=== PATIENT | female | born 1980 | race American Indian/Alaskan Native ===

== ENCOUNTER 2019-06-03 19:52 | Inpatient (IN) | payer OTHER ==
[2019-06-03 21:38] LABS: Basophils % (Auto) 0.6 % (0.0-1.8); Eosinophils # (Auto) 0.1 K/mm3 (0.0-0.4); Eosinophils % (Auto) 0.9 % (0.0-4.3); Hematocrit 40.2 % (30.3-42.9); Hemoglobin 13.6 gm/dl (10.1-14.3); Lymphocytes # (Auto) 1.7 K/mm3 (1.2-5.4); Lymphocytes % (Auto) 23.7 % (13.4-35.0); Mean Corpuscular HGB Conc 34 % (30-34); Mean Corpuscular Volume 105 fl (79-97); Monocytes # (Auto) 0.7 K/mm3 (0.0-0.8); Monocytes % (Auto) 10.3 % (0.0-7.3); Platelet Count 225 K/mm3 (140-440); Red Blood Count 3.82 M/mm3 (3.65-5.03); Red Cell Distribution Width 13.2 % (13.2-15.2)
[2019-06-03] MEDS ORDERED: HALDOL IM PRN (21:45)
[2019-06-03] MEDS ORDERED: ATIVAN IM PRN (21:45)
--- NOTE | 2019-06-03 21:46 | Emergency Department Report ---
<JAMESPAM Dupree - Last Filed: 06/04/19 02:52> ED Psych HPI - General Chief Complaint: Psych Stated Complaint: MH EVAL Time Seen by Provider: 06/03/19 21:16 - Related Data Home Medications Medication Instructions Recorded Confirmed Last Taken No Known Home Medications [No 06/03/19 06/03/19 Unknown Reported Home Medications] Allergies Allergy/AdvReac Type Severity Reaction Status Date / Time Unable to Assess Allergy Verified 06/03/19 23:26 ED Past Medical Hx - Medications Home Medications: Home Medications Medication Instructions Recorded Confirmed Last Taken Type No Known Home Medications [No 06/03/19 06/03/19 Unknown History Reported Home Medications] ED Medical Decision Making - Lab Data Result diagrams: 06/03/19 21:23 06/04/19 00:29 ED Disposition Clinical Impression: Psychosis, Medical clearance for psychiatric admission, Alcohol intoxication, Rhabdomyolysis Disposition: OP ADMIT IP TO THIS HOSP Is pt being admited?: Yes Condition: Stable Time of Disposition: 02:53 (hospitalist paged (Dr. Suzi Waggoner)) <ENRIQUE LOVE - Last Filed: 06/04/19 23:14> ED Psych HPI - General Source: family, police, RN notes reviewed Mode of arrival: Ambulatory Limitations: Other (the patient is actively psychotic) - History of Present Illness Initial Comments: Collateral information was obtained from father Phillip [phone] and josesito Shipley [phone]. They report that patient is a [place] who has no psych hx and that she has been fighting with symptoms of psychosis for the past 4 years on and off. They report that she got upset last night for falling asleep while cooking and that this morning she decided she was going to go to [employer] but never made it and they got a call from the contact and service clerks supervisor at the gas station saying she was intoxicated, was acting out of control, and the police had picked her up. The patient to me is agitated, does not endorse any physical complaint, but is quite disorganized, and erratic. She is also yelling and screaming. The patient did not respond to verbal de-escalation techniques or show of force. She would not respond to questions about possible overdose. Her family has given verbal consent for chemical sedation, if necessary. There is no history of trauma that they are aware of. The patient cannot describe ex acerbating or relieving factors. Complaint: other -: Gradual ED Review of Systems ROS: Stated complaint: CIARA CHUNG Other details as noted in HPI Comment: Unobtainable due to pts medical conditions ED Past Medical Hx - Past Medical History Additional medical history: unable to obtain - Surgical History Additional Surgical History: unable to obtain - Social History Smoking Status: Unknown if ever smoked ED Physical Exam - General Limitations: Other (patient is agitated, psychotic and screaming.) General appearance: alert, anxious, in distress - Head Head exam: Present: atraumatic, normocephalic - Eye Eye exam: Present: normal appearance, EOMI. Absent: nystagmus - ENT ENT exam: Present: normal exam, normal orophraynx, mucous membranes moist, normal external ear exam - Neck Neck exam: Present: normal inspection, full ROM. Absent: tenderness, meningismus - Respiratory Respiratory exam: Present: normal lung sounds bilaterally. Absent: respiratory distress - Cardiovascular Cardiovascular Exam: Present: regular rate, normal rhythm, normal heart sounds. Absent: bradycardia, tachycardia, systolic murmur, diastolic murmur, rubs, gallop - GI/Abdominal GI/Abdominal exam: Present: soft, normal bowel sounds. Absent: distended, tenderness, guarding, rebound, rigid, pulsatile mass - Extremities Exam Extremities exam: Present: normal inspection, full ROM, other (2+ pulses noted in the bilateral upper, lower extremities. There is no long bone tenderness. Musculoskeletal compartments are soft. The pelvis is stable.). Absent: pedal edema, joint swelling, calf tenderness - Back Exam Back exam: Present: normal inspection. Absent: tenderness, CVA tenderness (R), CVA tenderness (L), vertebral tenderness - Neurological Exam Neurological exam: Present: alert, other (is no facial droop. The tongue is midline. The extraocular movements are intact bilaterally. Moving 4 extremities without difficulty. Phonating in full sentences. Detailed n eurologic examination not possible secondary to psychosis) - Psychiatric Psychiatric exam: Present: agitated, anxious - Skin Skin exam: Present: warm, dry, intact, normal color. Absent: rash ED Course Vital Signs 06/03/19 06/03/19 06/03/19 20:23 23:12 23:15 Temperature 98.0 F Pulse Rate 107 H 94 H 94 H Respiratory 18 16 17 Rate Blood Pressure Blood Pressure 90/68 [Left] O2 Sat by Pulse 95 98 98 Oximetry 06/03/19 06/03/19 06/04/19 23:30 23:45 00:01 Temperature Pulse Rate 99 H 90 89 Respiratory 16 16 15 Rate Blood Pressure Blood Pressure [Left] O2 Sat by Pulse 99 98 98 Oximetry 06/04/19 06/04/19 06/04/19 00:15 00:31 00:45 Temperature Pulse Rate 88 105 H 88 Respiratory 16 15 16 Rate Blood Pressure Blood Pressure [Left] O2 Sat by Pulse 99 98 98 Oximetry 06/04/19 06/04/19 06/04/19 01:01 01:15 01:31 Temperature Pulse Rate 88 93 H 91 H Respiratory 18 17 15 Rate Blood Pressure Blood Pressure [Left] O2 Sat by Pulse 97 98 99 Oximetry 06/04/19 06/04/19 06/04/19 01:45 02:01 02:15 Temperature Pulse Rate 90 90 90 Respiratory 14 14 13 Rate Blood Pressure Blood Pressure [Left] O2 Sat by Pulse 99 99 99 Oximetry 06/04/19 06/04/19 06/04/19 02:31 02:45 02:57 Temperature Pulse Rate 89 84 Respiratory 16 14 Rate Blood Pressure Blood Pressure 126/78 [Left] O2 Sat by Pulse 100 99 Oximetry 06/04/19 06/04/19 06/04/19 03:00 03:15 03:30 Temperature Pulse Rate 83 85 87 Respiratory 15 16 14 Rate Blood Pressure 135/72 118/67 119/73 Blood Pressure [Left] O2 Sat by Pulse 99 100 99 Oximetry 06/04/19 06/04/19 06/04/19 03:45 04:00 04:15 Temperature Pulse Rate 85 81 83 Respiratory 15 14 14 Rate Blood Pressure 111/74 108/69 111/74 Blood Pressure [Left] O2 Sat by Pulse 99 98 99 Oximetry 06/04/19 06/04/19 06/04/19 04:30 04:45 05:00 Temperature Pulse Rate 84 85 82 Respiratory 14 13 15 Rate Blood Pressure 111/65 120/76 116/73 Blood Pressure [Left] O2 Sat by Pulse 99 99 98 Oximetry 06/04/19 06/04/19 06/04/19 05:15 05:30 05:41 Temperature Pulse Rate 84 88 84 Respiratory 15 16 15 Rate Blood Pressure 112/80 115/76 115/76 Blood Pressure [Left] O2 Sat by Pulse 99 99 100 Oximetry - Reevaluation(s) Reevaluation #1: 06/03/19 22:50 Differential diagnosis, including the psychosis, intoxication, medical clearance for psychiatric placement, intracranial injury, urinary tract infection Assessment and plan: 38-year-old female who is agitated, combative, belligerent, has endorsed desire for self-harm, who does not have decision-making capacity, who is clinically psychotic. She is placed on a 1013. Discussed need for chemical sedation with family, who has given verbal consent. The patient did not respond to verbal techniques, or show of force. Screening laboratory studies reviewed and appreciated. CK likely secondary to psychomotor agitation. It is not consistent with rhabdomyolysis and it will decrease on its own with rest and oral hydration. Vital signs, urinalysis, EKG, noncontrast CT scan of the brain pending. 1013 is filled out, psychiatric consultation is requested. 06/03/19 22:52 Reevaluation #2: 06/03/19 23:28 Anion gap likely multifactorial, possibly secondary to hyperventilation, deh ydration, alcohol intoxication. Urinalysis suggestive of possible urinary tract infection. Noncontrast CT scan of the brain ordered, IV fluids ordered, Macrobid ordered, repeat laboratory studies ordered. Reevaluation #3: 06/03/19 23:45 care will be transferred to DR Carey Coronado to follow up on head ct and repeat labs patient calmer now ED Medical Decision Making - Lab Data Result diagrams: 06/03/19 21:23 06/04/19 00:29 Vital Signs 06/03/19 20:23 Temperature 98.0 F Pulse Rate 107 H Respiratory 18 Rate Blood Pressure 90/68 [Left] O2 Sat by Pulse 95 Oximetry Lab Results 06/03/19 06/03/19 06/03/19 Range/Units 21:23 21:23 21:23 WBC (4.5-11.0) K/mm3 RBC (3.65-5.03) M/mm3 Hgb (10.1-14.3) gm/dl Hct (30.3-42.9) % MCV (79-97) fl MCH (28-32) pg MCHC (30-34) % RDW (13.2-15.2) % Plt Count (140-440) K/mm3 Lymph % (Auto) (13.4-35.0) % [place] % (Auto) (0.0-7.3) % Eos % (Auto) (0.0-4.3) % Baso % (Auto) (0.0-1.8) % Lymph # (1.2-5.4) K/mm3 [place] # (0.0-0.8) K/mm3 Eos # (0.0-0.4) K/mm3 Baso # (0.0-0.1) K/mm3 Seg Neutrophils % (40.0-70.0) % Seg Neutrophils # (1.8-7.7) K/mm3 Sodium 143 (137-145) mmol/L Potassium 4.0 (3.6-5.0) mmol/L Chloride 104.8 (98-107) mmol/L Carbon Dioxide 15 L (22-30) mmol/L Anion Gap 27 mmol/L BUN 13 (7-17) mg/dL Creatinine 0.9 (0.7-1.2) mg/dL Estimated GFR > 60 ml/min BUN/Creatinine Ratio 14 % Glucose 81 (65-100) mg/dL Calcium 8.7 (8.4-10.2) mg/dL Total Creatine Kinase (30-135) units/L HCG, Quant (0-4) mIU/mL Urine Color (Yellow) Urine Turbidity (Clear) Urine pH (5.0-7.0) Ur Specific [place] (1.003-1.030) Urine Protein (Negative) mg/dL Urine Glucose (UA) (Negative) mg/dL Urine Ketones (Negative) mg/dL Urine Blood (Negative) Urine Nitrite (Negative) Urine Bilirubin (Negative) Urine Urobilinogen (<2.0) mg/dL Ur Leukocyte Esterase (Negative) Urine WBC (Auto) (0.0-6.0) /HPF Urine RBC (Auto) (0.0-6.0) /HPF U Epithel Cells (Auto) (0-13.0) /HPF Urine Bacteria (Auto) (Negative) /HPF Hyaline Casts /LPF Urine Mucus /HPF Urine Yeast (Budding) /HPF Salicylates < 0.3 L (2.8-20.0) mg/dL Urine Opiates Screen Urine Methadone Screen Acetaminophen < 5.0 L (10.0-30.0) ug/mL Ur Barbiturates Screen Ur Phencyclidine Scrn Ur Amphetamines Screen U Benzodiazepines Scrn Urine Cocaine Screen U Marijuana (THC) Screen Drugs of Abuse Note Plasma/Serum Alcohol (0-0.07) % 06/03/19 06/03/19 06/03/19 Range/Units 21:23 21:23 Unknown WBC 7.2 (4.5-11.0) K/mm3 RBC 3.82 (3.65-5.03) M/mm3 Hgb 13.6 (10.1-14.3) gm/dl Hct 40.2 (30.3-42.9) % MCV 105 H (79-97) fl MCH 36 H (28-32) pg MCHC 34 (30-34) % RDW 13.2 (13.2-15.2) % Plt Count 225 (140-440) K/mm3 Lymph % (Auto) 23.7 (13.4-35.0) % [place] % (Auto) 10.3 H (0.0-7.3) % Eos % (Auto) 0.9 (0.0-4.3) % Baso % (Auto) 0.6 (0.0-1.8) % Lymph # 1.7 (1.2-5.4) K/mm3 [place] # 0.7 (0.0-0.8) K/mm3 Eos # 0.1 (0.0-0.4) K/mm3 Baso # 0.0 (0.0-0.1) K/mm3 Seg Neutrophils % 64.5 (40.0-70.0) % Seg Neutrophils # 4.6 (1.8-7.7) K/mm3 Sodium (137-145) mmol/L Potassium (3.6-5.0) mmol/L Chloride (98-107) mmol/L Carbon Dioxide (22-30) mmol/L Anion Gap mmol/L BUN (7-17) mg/dL Creatinine (0.7-1.2) mg/dL Estimated GFR ml/min BUN/Creatinine Ratio % Glucose (65-100) mg/dL Calcium (8.4-10.2) mg/dL Total Creatine Kinase (30-135) units/L HCG, Quant (0-4) mIU/mL Urine Color Yellow (Yellow) Urine Turbidity Slightly-cloudy (Clear) Urine pH 5.0 (5.0-7.0) Ur Specific [place] 1.013 (1.003-1.030) Urine Protein 30 mg/dl (Negative) mg/dL Urine Glucose (UA) Neg (Negative) mg/dL Urine Ketones Neg (Negative) mg/dL Urine Blood Lg (Negative) Urine Nitrite Neg (Negative) Urine Bilirubin Neg (Negative) Urine Urobilinogen < 2.0 (<2.0) mg/dL Ur Leukocyte Esterase Mod (Negative) Urine WBC (Auto) 8.0 H (0.0-6.0) /HPF Urine RBC (Auto) 5.0 (0.0-6.0) /HPF U Epithel Cells (Auto) 7.0 (0-13.0) /HPF Urine Bacteria (Auto) 1+ (Negative) /HPF Hyaline Casts 4 /LPF Urine Mucus Few /HPF Urine Yeast (Budding) Few /HPF Salicylates (2.8-20.0) mg/dL Urine Opiates Screen Urine Methadone Screen Acetaminophen (10.0-30.0) ug/mL Ur Barbiturates Screen Ur Phencyclidine Scrn Ur Amphetamines Screen U Benzodiazepines Scrn Urine Cocaine Screen U Marijuana (THC) Screen Drugs of Abuse Note Plasma/Serum Alcohol 0.21 H (0-0.07) % 06/03/19 06/03/19 06/03/19 Range/Units Unknown Unknown Unknown WBC (4.5-11.0) K/mm3 RBC (3.65-5.03) M/mm3 Hgb (10.1-14.3) gm/dl Hct (30.3-42.9) % MCV (79-97) fl MCH (28-32) pg MCHC (30-34) % RDW (13.2-15.2) % Plt Count (140-440) K/mm3 Lymph % (Auto) (13.4-35.0) % [place] % (Auto) (0.0-7.3) % Eos % (Auto) (0.0-4.3) % Baso % (Auto) (0.0-1.8) % Lymph # (1.2-5.4) K/mm3 [place] # (0.0-0.8) K/mm3 Eos # (0.0-0.4) K/mm3 Baso # (0.0-0.1) K/mm3 Seg Neutrophils % (40.0-70.0) % Seg Neutrophils # (1.8-7.7) K/mm3 Sodium (137-145) mmol/L Potassium (3.6-5.0) mmol/L Chloride (98-107) mmol/L Carbon Dioxide (22-30) mmol/L Anion Gap mmol/L BUN (7-17) mg/dL Creatinine (0.7-1.2) mg/dL Estimated GFR ml/min BUN/Creatinine Ratio % Glucose (65-100) mg/dL Calcium (8.4-10.2) mg/dL Total Creatine Kinase 834 H (30-135) units/L HCG, Quant < 2 (0-4) mIU/mL Urine Color (Yellow) Urine Turbidity (Clear) Urine pH (5.0-7.0) Ur Specific [place] (1.003-1.030) Urine Protein (Negative) mg/dL Urine Glucose (UA) (Negative) mg/dL Urine Ketones (Negative) mg/dL Urine Blood (Negative) Urine Nitrite (Negative) Urine Bilirubin (Negative) Urine Urobilinogen (<2.0) mg/dL Ur Leukocyte Esterase (Negative) Urine WBC (Auto) (0.0-6.0) /HPF Urine RBC (Auto) (0.0-6.0) /HPF U Epithel Cells (Auto) (0-13.0) /HPF Urine Bacteria (Auto) (Negative) /HPF Hyaline Casts /LPF Urine Mucus /HPF Urine Yeast (Budding) /HPF Salicylates (2.8-20.0) mg/dL Urine Opiates Screen Presumptive negative Urine Methadone Screen Presumptive negative Acetaminophen (10.0-30.0) ug/mL Ur Barbiturates Screen Presumptive negative Ur Phencyclidine Scrn Presumptive negative Ur Amphetamines Screen Presumptive negative U Benzodiazepines Scrn Presumptive negative Urine Cocaine Screen Presumptive negative U Marijuana (THC) Screen Presumptive negative Drugs of Abuse Note Disclamer Plasma/Serum Alcohol (0-0.07) % - EKG Data -: EKG Interpreted by Or EKG shows normal: sinus rhythm Rate: normal - EKG Data When compared to previous EKG there are: previous EKG unavailable 06/03/19 23:24 This is a normal sinus rhythm, 90 bpm, normal axis, QTC is 446 ms, there is poor R-wave progression, the EKG is abnormal, there is no prior for comparison, the EKG is not consistent with ST elevation myocardial infarction. - Radiology Data Radiology results: pending Critical care attestation.: If time is entered above; I have spent that time in minutes in the direct care of this critically ill patient, excluding procedure time. ED Disposition Does the pt Need Aspirin: No
[2019-06-03 21:55] LABS: BUN/Creatinine Ratio 14; Blood Urea Nitrogen 13 mg/dL (7-17); Calcium 8.7 mg/dL (8.4-10.2); Hemolysis Index 32
[2019-06-03] MEDS ORDERED: NACL 0.9% 1000 ML 2,000 ML IV ONE (22:52)
[2019-06-03] MEDS ORDERED: NACL 0.9% 1000 ML 1,000 ML IV ONE (22:53)
[2019-06-03 23:13] LABS: Amphetamine Screen,Urine PRESUMPTIVE NEGATIVE; Bacteria,Urine 1+ /HPF (Negative); Benzodiazepines Screen,Urine PRESUMPTIVE NEGATIVE; Bilirubin,Urine NEG (Negative); Blood,Urine LG (Negative); Cannabinoid Screen,Urine PRESUMPTIVE NEGATIVE; Cocaine Screen,Urine PRESUMPTIVE NEGATIVE; Color,Urine Yellow (Yellow); Hyaline Casts,Urine 4 /LPF; Methadone Screen,Urine PRESUMPTIVE NEGATIVE; Mucus,Urine FEW /HPF; Opiate Screen,Urine PRESUMPTIVE NEGATIVE; Urobilinogen,Urine < 2.0 mg/dL (<2.0)
--- NOTE | 2019-06-04 00:01 | Cat Scan Report ---
CT head/brain wo con INDICATION / CLINICAL INFORMATION: psychosis agitated behavior, etoh intox. TECHNIQUE: All CT scans at this location are performed using CT dose reduction for ALARA by means of automated e xposure control. COMPARISON: None available. FINDINGS: No intracranial hemorrhage, mass effect or abnormal extra-axial fluid collection. The ventricular system and basilar cisterns are normal. Visualized orbits and paranasal sinuses are normal. No osseous abnormality. IMPRESSION: 1. Negative nonenhanced head CT. Signer Name: Prosper Truong MD Signed: 06/03/2019 11:56 PM Workstation Name: [id number]
[2019-06-04 01:45] LABS: BUN/Creatinine Ratio 15; Blood Urea Nitrogen 12 mg/dL (7-17); Hemolysis Index 19
[2019-06-04] MEDS ORDERED: NACL 0.9% 1000 ML 1,000 ML IV ONE (02:30)
[2019-06-04] MEDS ORDERED: NACL 0.9% 1000 ML 1,000 ML ONE (02:30)
[2019-06-04] MEDS: MACROBID PO SCH ×3 (03:52→21:08)
[2019-06-04] MEDS ORDERED: TYLENOL PO PRN (03:53)
[2019-06-04] MEDS ORDERED: ZOFRAN IV PRN (03:53)
[2019-06-04] MEDS ORDERED: SODIUM CHLORIDE FLUSH SYRINGE 10 ML IV PRN (03:53)
--- NOTE | 2019-06-04 03:57 | History and Physical Report ---
History of Present Illness Date of examination: 06/04/19 History of present illness: 38-year-old woman with no medical problems was brought to the emergency room by the police because she was at the gas station acting combative per chart. Chart also stated that she told the police that she wanted to kill herself. Patient state that she wasn't not combative, there are many people closing in on her and she wanted this to stop. She refused to give further history, the system unobtainable PAST MEDICAL HISTORY:None PAST SURGICAL HISTORY:None FAMILY HISTORY:Unknown SOCIAL HISTORY: Denies tobacco, drugs, drinks alcohol, refuse to quantify Medications and Allergies Allergies Allergy/AdvReac Type Severity Reaction Status Date / Time Unable to Assess Allergy Verified 06/03/19 23:26 Home Medications Medication Instructions Recorded Confirmed Last Taken Type No Known Home Medications [No 06/03/19 06/03/19 Unknown History Reported Home Medications] Active Meds: Active Medications Acetaminophen (Tylenol) 650 mg PO Q4H PRN PRN Reason: Pain MILD(1-3)/Fever >100.5/DONAHUE Enoxaparin Sodium (Lovenox) 30 mg SUB-Q QDAY [facility] Sodium Chloride (Nacl 0.9% 1000 Ml) 1,000 mls @ 250 mls/hr IV ONCE ONE Stop: 06/04/19 06:29 Sodium Chloride (Nacl 0.9% 1000 Ml) 1,000 mls @ 150 mls/hr IV DIRECT GARRETT Lorazepam (Ativan) 2 mg IM Q4HR PRN PRN Reason: Agitation Nitrofurantoin Macrocrystals (Macrobid) 100 mg PO Q12HR GARRETT Stop: 06/10/19 10:01 Last Admin: 06/04/19 03:52 Dose: 100 mg Documented by: Ondansetron HCl (Zofran) 4 mg IV Q8H PRN PRN Reason: Nausea And Vomiting Sodium Chloride (Sodium Chloride Flush Syringe 10 Ml) 10 ml IV BID GARRETT Sodium Chloride (Sodium Chloride Flush Syringe 10 Ml) 10 ml IV PRN PRN PRN Reason: LINE FLUSH Exam - Physical Exam Narrative exam: General Apperance: The patient sitting in bed no acute distress HEENT: Normocephalic, atraumatic. Pupils equally round and reactive to light, extraocular movement intact, and no sclericterus or JVD or thyromegaly or nodule. Neck supple, no carotid bruit, mucous membranes moist, no exudate or erythema Heart: S1-S2, regular is rhythm Lungs: Clear to auscultation bilaterally, breathing comfortable Abdomen: Positive bowel sounds, soft, nontender, nondistended, no organomegaly Extremities: No edema cyanosis clubbing Skin: no rash, nodule, warm and dry Neuro:difficult to assess - Constitutional Vitals: Temp Pulse Resp BP Pulse Ox 98.0 F 85 16 118/67 100 06/03/19 20:23 06/04/19 03:15 06/04/19 03:15 06/04/19 03:15 06/04/19 03:15 Results - Labs CBC & Chem 7: 06/03/19 21:23 06/04/19 00:29 Labs: Abnormal lab results 06/03/19 06/03/19 06/03/19 Range/Units 21:23 21:23 21:23 MCV (79-97) fl MCH (28-32) pg [place] % (Auto) (0.0-7.3) % Potassium (3.6-5.0) mmol/L Carbon Dioxide 15 L (22-30) mmol/L Calcium (8.4-10.2) mg/dL Total Creatine Kinase (30-135) units/L Urine WBC (Auto) (0.0-6.0) /HPF Salicylates < 0.3 L (2.8-20.0) mg/dL Acetaminophen < 5.0 L (10.0-30.0) ug/mL Plasma/Serum Alcohol (0-0.07) % 06/03/19 06/03/19 06/03/19 Range/Units 21:23 21:23 Unknown MCV 105 H (79-97) fl MCH 36 H (28-32) pg [place] % (Auto) 10.3 H (0.0-7.3) % Potassium (3.6-5.0) mmol/L Carbon Dioxide (22-30) mmol/L Calcium (8.4-10.2) mg/dL Total Creatine Kinase (30-135) units/L Urine WBC (Auto) 8.0 H (0.0-6.0) /HPF Salicylates (2.8-20.0) mg/dL Acetaminophen (10.0-30.0) ug/mL Plasma/Serum Alcohol 0.21 H (0-0.07) % 06/03/19 06/04/19 Range/Units Unknown 00:29 MCV (79-97) fl MCH (28-32) pg [place] % (Auto) (0.0-7.3) % Potassium 3.5 L (3.6-5.0) mmol/L Carbon Dioxide 18 L (22-30) mmol/L Calcium 8.0 L (8.4-10.2) mg/dL Total Creatine Kinase 834 H 2210 H (30-135) units/L Urine WBC (Auto) (0.0-6.0) /HPF Salicylates (2.8-20.0) mg/dL Acetaminophen (10.0-30.0) ug/mL Plasma/Serum Alcohol (0-0.07) % - Imaging and Cardiology CT Scan - head: report reviewed Assessment and Plan Assessment Rhabdomyolysis All intoxication Suicide ideation UTI Plan Admit medicine Start IV fluid, monitor CK level Consult psych, place with a sitter DVT prophylaxis, continue antibiotic
[2019-06-04] MEDS ORDERED: K-DUR PO ONE ×2 (04:06→06:26)
[2019-06-04] MEDS ORDERED: LOVENOX SUB-Q SCH (10:00)
[2019-06-04] MEDS: SODIUM CHLORIDE FLUSH SYRINGE 10 ML IV SCH ×2 (10:27→21:09)
[2019-06-04] MEDS: NACL 0.9% 1000 ML 1,000 ML IV SCH ×3 (10:27→23:16)
[2019-06-04] MEDS: LOVENOX SUB-Q SCH (10:30)
[2019-06-04] MEDS ORDERED: HALDOL IV PRN (13:08)
[2019-06-04] MEDS ORDERED: ATIVAN IV PRN ×2 (13:08)
--- NOTE | 2019-06-04 13:10 | Progress Note ---
Assessment and Plan Assessment and plan: Patient is a 38 yo woman with presented with AMS. She was placed on 1013 for SI. She was found to be intoxicated with serum ETOH level of 0.21 (normal up 0.07) Alcholol intoxication: sz precautions, CIWA protocol, neurochecks Acute Toxic Metabolic Encephalopathy Rhabdomyolysis: treat with IVF, serial CPK levels Suicidal Ideation: mental health is following, sitter at bedside. Hypokalemia: replete and recheck in AM UTI, acute simple cystitis: on abx/Macrobid and urine culture not ordered or sent. DVT ppx on sq lovenox GI ppx add oral protonix prolonged inpatient services 33 minutes History Interval history: Patient was seen and examined. Follow-up on current diagnosis of AMS. No overnight events reported to me. Patient denies any chest pain, shortness breath, nausea/vomiting or severe headaches. Imaging, nursing note, chart, labs and old chart reviewed. Discussed with patient. Hospitalist Physical - Physical exam Narrative exam: Gen: WDWN, NAD, Awake, Alert, Orientated HEENT: NCAT, EOMI, PERRL, OP Clear Neck: supple, no adenopathy, no thyromegaly, no JVD CVS/Heart: RRR, normal S1S2, pulses present bilaterally Chest/Lungs: CTA B, Symmetrical chest expansion, good air entry bilaterally GI/Abdomen: soft, NTND, good bowel sounds, no guarding or rebound /Bladder: no suprapubic tenderness, no CVA or paraspinal tenderness Extermity/Skin: no c/c/e, no obvious rash MSK: FROM x 4 Neuro: CN 2-12 grossly intact, no new focal deficits Psych: calm - Constitutional Vitals: Temp Pulse Resp BP Pulse Ox 98.3 F 81 16 116/81 98 06/04/19 07:04 06/04/19 07:04 06/04/19 07:04 06/04/19 07:04 06/04/19 07:04 Results - Labs CBC & Chem 7: 06/03/19 21:23 06/04/19 00:29 Labs: Laboratory Last Values WBC 7.2 K/mm3 (4.5-11.0) 06/03/19 21:23 RBC 3.82 M/mm3 (3.65-5.03) 06/03/19 21:23 Hgb 13.6 gm/dl (10.1-14.3) 06/03/19 21: Hct 40.2 % (30.3-42.9) 06/03/19 21: MCV 105 fl (79-97) H 06/03/19 21:23 MCH 36 pg (28-32) H 06/03/19 21: MCHC 34 % (30-34) 06/03/19 21: RDW 13.2 % (13.2-15.2) 06/03/19 21: Plt Count 225 K/mm3 (140-440) 06/03/19 21: Lymph % (Auto) 23.7 % (13.4-35.0) 06/03/19 21: [place] % (Auto) 10.3 % (0.0-7.3) H 06/03/19 21: Eos % (Auto) 0.9 % (0.0-4.3) 06/03/19 21: Baso % (Auto) 0.6 % (0.0-1.8) 06/03/19 21: Lymph # 1.7 K/mm3 (1.2-5.4) 06/03/19 21: [place] # 0.7 K/mm3 (0.0-0.8) 06/03/19 21: Eos # 0.1 K/mm3 (0.0-0.4) 06/03/19 21: Baso # 0.0 K/mm3 (0.0-0.1) 06/03/19 21: Seg Neutrophils % 64.5 % (40.0-70.0) 06/03/19 21: Seg Neutrophils # 4.6 K/mm3 (1.8-7.7) 06/03/19 21:23 Sodium 139 mmol/L (137-145) 06/04/19 00:29 Potassium 3.5 mmol/L (3.6-5.0) L 06/04/19 00:29 Chloride 105.6 mmol/L (98-107) 06/04/19 00:29 Carbon Dioxide 18 mmol/L (22-30) L 06/04/19 00:29 Anion Gap 19 mmol/L 06/04/19 00:29 BUN 12 mg/dL (7-17) 06/04/19 00:29 Creatinine 0.8 mg/dL (0.7-1.2) 06/04/19 00:29 Estimated GFR > 60 ml/min 06/04/19 00:29 BUN/Creatinine Ratio 15 % 06/04/19 00:29 Glucose 71 mg/dL (65-100) 06/04/19 00:29 Calcium 8.0 mg/dL (8.4-10.2) L 06/04/19 00:29 Total Creatine Kinase 2210 units/L (30-135) H 06/04/19 00:29 HCG, Quant < 2 mIU/mL (0-4) 06/03/19 Unknown Urine Color Yellow (Yellow) 06/03/19 Unknown Urine Turbidity Slightly-cloudy (Clear) 06/03/19 Unknown Urine pH 5.0 (5.0-7.0) 06/03/19 Unknown Ur Specific [place] 1.013 (1.003-1.030) 06/03/19 Unknown Urine Protein 30 mg/dl mg/dL (Negative) 06/03/19 Unknown Urine Glucose (UA) Neg mg/dL (Negative) 06/03/19 Unknown Urine Ketones Neg mg/dL (Negative) 06/03/19 Unknown Urine Blood Lg (Negative) 06/03/19 Unknown Urine Nitrite Neg (Negative) 06/03/19 Unknown Urine Bilirubin Neg (Negative) 06/03/19 Unknown Urine Urobilinogen < 2.0 mg/dL (<2.0) 06/03/19 Unknown Ur Leukocyte Esterase Mod (Negative) 06/03/19 Unknown Urine WBC (Auto) 8.0 /HPF (0.0-6.0) H 06/03/19 Unknown Urine RBC (Auto) 5.0 /HPF (0.0-6.0) 06/03/19 Unknown U Epithel Cells (Auto) 7.0 /HPF (0-13.0) 06/03/19 Unknown Urine Bacteria (Auto) 1+ /HPF (Negative) 06/03/19 Unknown Hyaline Casts 4 /LPF 06/03/19 Unknown Urine Mucus Few /HPF 06/03/19 Unknown Urine Yeast (Budding) Few /HPF 06/03/19 Unknown Salicylates < 0.3 mg/dL (2.8-20.0) L 06/03/19 21:23 Urine Opiates Screen Presumptive negative 06/03/19 Unknown Urine Methadone Screen Presumptive negative 06/03/19 Unknown Acetaminophen < 5.0 ug/mL (10.0-30.0) L 06/03/19 21:23 Ur Barbiturates Screen Presumptive negative 06/03/19 Unknown Ur Phencyclidine Scrn Presumptive negative 06/03/19 Unknown Ur Amphetamines Screen Presumptive negative 06/03/19 Unknown U Benzodiazepines Scrn Presumptive negative 06/03/19 Unknown Urine Cocaine Screen Presumptive negative 06/03/19 Unknown U Marijuana (THC) Screen Presumptive negative 06/03/19 Unknown Drugs of Abuse Note Disclamer 06/03/19 Unknown Plasma/Serum Alcohol 0.21 % (0-0.07) H 06/03/19 21:23 Active Medications - Current Medications Current Medications: Generic Name Dose Route Start Last Admin Trade Name Freq PRN Reason Stop Dose Admin Acetaminophen 650 mg 06/04/19 03:53 Tylenol PO Q4H PRN Pain MILD(1-3)/Fever >100.5/DONAHUE Enoxaparin Sodium 40 mg 06/04/19 10:00 06/04/19 10:30 Lovenox SUB-Q Not Given QDAY@1000 GARRETT Sodium Chloride 1,000 mls @ 150 mls/hr 06/04/19 04:00 06/04/19 10:27 Nacl 0.9% 1000 Ml IV 150 mls/hr DIRECT GARRETT Administration Nitrofurantoin Macrocrystals 100 mg 06/03/19 23:45 06/04/19 10:27 Macrobid PO 06/10/19 10:01 100 mg Q12HR GARRETT Administration Ondansetron HCl 4 mg 06/04/19 03:53 Zofran IV Q8H PRN Nausea And Vomiting Sodium Chloride 10 ml 06/04/19 10:00 06/04/19 10:27 Sodium Chloride Flush Syringe 10 Ml IV 10 ml BID GARRETT Administration Sodium Chloride 10 ml 06/04/19 03:53 Sodium Chloride Flush Syringe 10 Ml IV PRN PRN LINE FLUSH
--- NOTE | 2019-06-04 13:43 | Consultation ---
History of Present Illness - Reason for Consult Consult date: 06/04/19 Reason for consult: Mental Health Evaluation Requesting physician: ENRIQUE LOEV - Chief Complaint Chief complaint: "I don't know why I'm here" - History of Present Psychiatric Illness 38 y.o. who presented to the ER by police for bizarre behavior and etoh. Today the patient was calm, but vague during the assessment. She was observed with the bible on her chest throughout the interview. She was asked about how she ended up in the ER, she stated, "I don't know." She was asked several other questions about her mental health, but she was vague with her answers. She did acknowledge being a , but denies any PTSD symptoms when asked. She did state that she drink occasionally, but denies that she was intoxicated yesterday. Overall, the patient's insight was vague to limited. She denies SI/HI's and AVH's. Medications and Allergies Allergies Allergy/AdvReac Type Severity Reaction Status Date / Time Unable to Assess Allergy Verified 06/03/19 23:26 Home Medications Medication Instructions Recorded Confirmed Last Taken Type No Known Home Medications [No 06/03/19 06/03/19 Unknown History Reported Home Medications] Active Meds: Active Medications Acetaminophen (Tylenol) 650 mg PO Q4H PRN PRN Reason: Pain MILD(1-3)/Fever >100.5/[place]UE Enoxaparin Sodium (Lovenox) 40 mg SUB-Q QDAY@1000 GARRETT Last Admin: 06/04/19 10:30 Dose: Not Given Documented by: Haloperidol Lactate (Haldol) 5 mg IV Q1H PRN PRN Reason: Unrespon. to mult. doses BZD's Sodium Chloride (Nacl 0.9% 1000 Ml) 1,000 mls @ 150 mls/hr IV DIRECT GARRETT Last Admin: 06/04/19 10:27 Dose: 150 mls/hr Documented by: Lorazepam (Ativan) 2 mg IV Q1H PRN PRN Reason: CIWA-Ar 8-15 Lorazepam (Ativan) 4 mg IV Q1H PRN PRN Reason: CIWA-Ar 16-25 Nitrofurantoin Macrocrystals (Macrobid) 100 mg PO Q12HR GARRETT Stop: 06/10/19 10:01 Last Admin: 06/04/19 10:27 Dose: 100 mg Documented by: Ondansetron HCl (Zofran) 4 mg IV Q8H PRN PRN Reason: Nausea And Vomiting Pantoprazole Sodium (Protonix) 40 mg PO QDAY [facility] Sodium Chloride (Sodium Chloride Flush Syringe 10 Ml) 10 ml IV BID GARRETT Last Admin: 06/04/19 10:27 Dose: 10 ml Documented by: Sodium Chloride (Sodium Chloride Flush Syringe 10 Ml) 10 ml IV PRN PRN PRN Reason: LINE FLUSH Thiamine HCl (Vitamin B-1) 100 mg PO QDAY [facility] Past psychiatric history - Past Medical History Past Medical History: No medical history, other Past Surgical History: No surgical history - past Psychiatric treatment and history psychiatric treatment history: Denies a psy hx and a fam psy hx. - Social History Social history: lives with family Mental Status Exam - Vital signs Last Vital Signs Temp 98.4 F 06/04/19 13:16 Pulse 84 06/04/19 13:16 Resp 16 06/04/19 13:16 BP 123/80 06/04/19 13:16 Pulse Ox 98 06/04/19 12:47 - Exam Narrative exam: MSE: Appearance: in hospital attire Behavior: regular eye contact Speech: regular rate and loud tone Mood: guarded Affect: flat Thought Process: circumstantial Thought Content: denies SI/HI's with AVH's Motor Activity: ambulatory Cognition: A/Ox 3 Insight: limited to vague Judgment: variable + Results Result Diagrams: 06/03/19 21:23 06/04/19 00:29 Abnormal lab results 06/03/19 06/03/19 06/03/19 Range/Units 21:23 21:23 21:23 MCV (79-97) fl MCH (28-32) pg [place] % (Auto) (0.0-7.3) % Potassium (3.6-5.0) mmol/L Carbon Dioxide 15 L (22-30) mmol/L Calcium (8.4-10.2) mg/dL Total Creatine Kinase (30-135) units/L Urine WBC (Auto) (0.0-6.0) /HPF Salicylates < 0.3 L (2.8-20.0) mg/dL Acetaminophen < 5.0 L (10.0-30.0) ug/mL Plasma/Serum Alcohol (0-0.07) % 06/03/19 06/03/19 06/03/19 Range/Units 21:23 21:23 Unknown MCV 105 H (79-97) fl MCH 36 H (28-32) pg [place] % (Auto) 10.3 H (0.0-7.3) % Potassium (3.6-5.0) mmol/L Carbon Dioxide (22-30) mmol/L Calcium (8.4-10.2) mg/dL Total Creatine Kinase (30-135) units/L Urine WBC (Auto) 8.0 H (0.0-6.0) /HPF Salicylates (2.8-20.0) mg/dL Acetaminophen (10.0-30.0) ug/mL Plasma/Serum Alcohol 0.21 H (0-0.07) % 06/03/19 06/04/19 Range/Units Unknown 00:29 MCV (79-97) fl MCH (28-32) pg [place] % (Auto) (0.0-7.3) % Potassium 3.5 L (3.6-5.0) mmol/L Carbon Dioxide 18 L (22-30) mmol/L Calcium 8.0 L (8.4-10.2) mg/dL Total Creatine Kinase 834 H 2210 H (30-135) units/L Urine WBC (Auto) (0.0-6.0) /HPF Salicylates (2.8-20.0) mg/dL Acetaminophen (10.0-30.0) ug/mL Plasma/Serum Alcohol (0-0.07) % All other labs normal. Assessment and Plan Assessment and plan: Impression: Alcohol Use DO. Alcohol Intoxication. Today the patient was calm, but vague during the assessment. Recommendation/Plan: Continue 1013 and gather collateral information to help determine proper treatment. Will staff with Dr Martir Hernandez.
[2019-06-04] MEDS: PROTONIX PO SCH (14:17)
[2019-06-04] MEDS: VITAMIN B-1 PO SCH (14:17)
[2019-06-05] MEDS: NACL 0.9% 1000 ML 1,000 ML IV SCH ×4 (05:50→23:31)
[2019-06-05 05:52] LABS: Eosinophils # (Auto) 0.1 K/mm3 (0.0-0.4); Eosinophils % (Auto) 2.1 % (0.0-4.3); Hematocrit 35.6 % (30.3-42.9); Hemoglobin 12.1 gm/dl (10.1-14.3); Lymphocytes # (Auto) 1.9 K/mm3 (1.2-5.4); Lymphocytes % (Auto) 42.5 % (13.4-35.0); Mean Corpuscular HGB Conc 34 % (30-34); Mean Corpuscular Volume 105 fl (79-97); Monocytes # (Auto) 0.4 K/mm3 (0.0-0.8); Monocytes % (Auto) 10.3 % (0.0-7.3); Platelet Count 173 K/mm3 (140-440); Red Cell Distribution Width 13.4 % (13.2-15.2)
[2019-06-05 05:56] LABS: Alanine Aminotransferase 27 units/L (7-56); Albumin 3.6 g/dL (3.9-5); BUN/Creatinine Ratio 10; Blood Urea Nitrogen 6 mg/dL (7-17); Hemolysis Index 6
[2019-06-05] MEDS: LOVENOX SUB-Q SCH (09:58)
[2019-06-05] MEDS: PROTONIX PO SCH (09:59)
[2019-06-05] MEDS: MACROBID PO SCH ×2 (09:59→21:38)
[2019-06-05] MEDS: VITAMIN B-1 PO SCH (09:59)
[2019-06-05] MEDS: SODIUM CHLORIDE FLUSH SYRINGE 10 ML IV SCH ×2 (09:59→23:33)
--- NOTE | 2019-06-05 13:01 | Discharge Summary ---
Providers - Providers Date of Admission: 06/04/19 03:53 Date of discharge: 06/05/19 Attending physician: LITO CHILEL 06/03/19 21:44 Consult to Mental Health [CONS] Urgent Reason For Exam: psych Place consult to:: cafe team member environmental manager Notified:: awaiting call back 06/04/19 03:54 psychiatry consult [Consult to Mental Health] [CONS] Routine Reason For Exam: SI Place consult to:: psych Notified:: ANTHONY Phone number called:: [phone] Was contact made?: Yes If yes, spoke with:: ANTHONY Time called:: 07:13 [facility] Condition: Good Hospital course: Patient now alert oriented 3. Patient admits to drinking too much today. Does not have a problem. States she gets depressed from family issues. Patient stable for discharge. We'll discharge after 2 more liters of IV fluids. Patient able to get up and walk around without difficulty. Alert and oriented. "Books. No pain no muscle weakness. Encourage by mouth fluids at home. Evidence of withdrawal. Disposition: DC-01 TO HOME OR SELFCARE - Discharge Diagnoses (1) Alcohol intoxication Status: Acute Comment: Should no longer intoxicated alert oriented 3. Longer have any evidence of intoxication (2) Medical clearance for psychiatric admission Status: Acute Comment: Patient does not require psychiatric admission at this time. Discharge home to family her sister. (3) Rhabdomyolysis Status: Acute Comment: As often. We'll continue IV fluids may discharge after fourth bag of IV fluids. Encourage by mouth intake. Core Measure Documentation - Palliative Care Palliative Care/ Comfort Measures: Not Applicable - Core Measures Any of the following diagnoses?: none Exam - Constitutional Vitals: Temp Pulse Resp BP Pulse Ox 98.4 F 109 H 18 125/69 98 06/04/19 17:57 06/04/19 17:57 06/04/19 17:57 06/04/19 17:57 06/04/19 17:57 General appearance: Present: no acute distress, well-nourished - EENT Eyes: Present: PERRL ENT: hearing intact, clear oral mucosa - Neck Neck: Present: supple, normal ROM - Respiratory Respiratory effort: normal Respiratory: bilateral: CTA - Cardiovascular Heart Sounds: Present: S1 & S2. Absent: rub, click - Extremities Extremities: pulses symmetrical, No edema Peripheral Pulses: within normal limits - Abdominal General gastrointestinal: Present: soft, non-tender, non-distended, normal bowel sounds Female genitourinary: Present: normal - Integumentary Integumentary: Present: clear, warm, dry - Musculoskeletal Musculoskeletal: gait normal, strength equal bilaterally - Psychiatric Psychiatric: appropriate mood/affect, intact judgment & insight - Neurologic Neurologic: CNII-XII intact, moves all extremities Plan Activity: no restrictions Weight Bearing Status: Full Weight Bearing Diet: regular Special Instructions: other (no alch) Follow up with: PHILL KHALIL MD [Primary Care Provider] - 3-5 Days Prescriptions: Nitrofurantoin [place]/M-Cryst [Macrobid CAP] 100 mg PO Q12HR #10 capsule
--- NOTE | 2019-06-05 13:22 | Progress Note ---
Subjective - Reason for Consult Consult date: 06/05/19 Reason for consult: Psychiatry Follow-up - Chief Complaint Chief complaint: "I do need to stop with the drinking" 38 y.o. who presented to the ER by police for bizarre behavior and etoh. Today the patient was cooperative during the assessment. She stated that she feel better and acknowledged that she consume alcohol when as a coping mechanism. She stated that she have been dealing with relationship issues for several months and her alcohol intake has increased. Per collateral information from her father Mr Phillip Baca at [phone]. He confirmed that his daughter drink "a lot" when things don't go her way. He stated that he was told that she walked into traffic prior to coming to the ER, possibly because she was intoxicated. He denies a suicide attempt by his daughter when asked. The patient stated that she cannot remember if she walked into traffic prior to her arrival to the ER because she was intoxicated. She denies SI/HI's and AVH's. The patient is willing to try rehab services once discharged. Mental Status Exam - Vital signs Last Vital Signs Temp 98.3 F 06/05/19 13:04 Pulse 98 H 06/05/19 13:04 Resp 22 06/05/19 13:04 BP 141/80 06/05/19 13:04 Pulse Ox 98 06/05/19 13:04 - Exam Narrative exam: MSE: Appearance: cooperative Behavior: regular eye contact Speech: regular rate and loud tone Mood: "okay" Affect: congruent to mood Thought Process: circumstantial Thought Content: denies SI/HI's with AVH's Motor Activity: ambulatory Cognition: A/Ox 3 Insight: fair Judgment: variable + Assessment and Plan Impression: Alcohol Use DO. Alcohol Intoxication. Today the patient was calm during the assessment. DDx: Mood DO Recommendation/Plan: Reevaluate the patient's 1013 in 24 hours. Discussed the importance to abstain excessive alcohol consumption (etoh) with the patient, she verbalized understanding. Dispo: If the patient's 1013 is rescinded in 24 hours, she can follow up with [facility] for outpatient rehab/psy services. Staffed with Dr Martir Hernandez.
[2019-06-05] MEDS ORDERED: DESYREL PO SCH (22:00)
[2019-06-06] MEDS: NACL 0.9% 1000 ML 1,000 ML IV SCH (05:44)
[2019-06-06 06:14] VITALS: BP 127/78
[2019-06-06] MEDS: PROTONIX PO SCH (09:02)
[2019-06-06] MEDS: VITAMIN B-1 PO SCH (09:02)
[2019-06-06] MEDS: MACROBID PO SCH (09:03)
[2019-06-06] MEDS: SODIUM CHLORIDE FLUSH SYRINGE 10 ML IV SCH (09:05)
[2019-06-06] MEDS: LOVENOX SUB-Q SCH (09:05)
--- NOTE | 2019-06-06 12:58 | Discharge Summary ---
Providers - Providers Date of Admission: 06/04/19 03:53 Date of discharge: 06/06/19 Attending physician: LITO CHILEL 06/03/19 21:44 Consult to Mental Health [CONS] Urgent Reason For Exam: psych Place consult to:: centrifugal operator delivery consultant Notified:: awaiting call back 06/04/19 03:54 psychiatry consult [Consult to Mental Health] [CONS] Routine Reason For Exam: SI Place consult to:: psych Notified:: ANTHONY Phone number called:: [phone] Was contact made?: Yes If yes, spoke with:: ANTHONY Time called:: 07:13 [facility] Condition: Good Hospital course: She presented after intoxication EtOH. Was altered now greater than 24 hours have been alert oriented. No evidence of Dt's has been alert appears to have not had drinking problem. Most of her problems seem to be psychosocial issues from life. Patient has follow-up with Dr. Hernandez psychiatry. Dr. Martir Hernandez. Disposition: DC- TO HOME OR SELFCARE - Discharge Diagnoses (1) Alcohol intoxication Status: Acute Comment: Should no longer intoxicated alert oriented 3. Longer have any evidence of intoxication (2) Medical clearance for psychiatric admission Status: Acute Comment: Patient does not require psychiatric admission at this time. Discharge home to family her altered.father (3) Rhabdomyolysis Status: Acute Comment: As often. We'll continue IV fluids may discharge after fourth bag of IV fluids. Encourage by mouth intake. As resolved dramatic reduction in CPK now muscular pain. Urinating fine. Core Measure Documentation - Palliative Care Palliative Care/ Comfort Measures: Not Applicable - Core Measures Any of the following diagnoses?: history only Exam - Constitutional Vitals: Temp Pulse Resp BP Pulse Ox 98.5 F 74 16 127/78 99 06/06/19 06:00 06/06/19 06:00 06/06/19 06:00 06/06/19 06:00 06/06/19 08:09 General appearance: Present: no acute distress, well-nourished - EENT Eyes: Present: PERRL ENT: hearing intact, clear oral mucosa - Neck Neck: Present: supple, normal ROM - Respiratory Respiratory effort: normal Respiratory: bilateral: CTA - Cardiovascular Heart Sounds: Present: S1 & S2. Absent: rub, click - Extremities Extremities: pulses symmetrical, No edema Peripheral Pulses: within normal limits - Abdominal General gastrointestinal: Present: soft, non-tender, non-distended, normal bowel sounds Female genitourinary: Present: normal - Integumentary Integumentary: Present: clear, warm, dry - Musculoskeletal Musculoskeletal: gait normal, strength equal bilaterally - Psychiatric Psychiatric: appropriate mood/affect, intact judgment & insight - Neurologic Neurologic: CNII-XII intact, moves all extremities Plan Activity: no restrictions Weight Bearing Status: Full Weight Bearing Diet: other Follow up with: PHILL KHALIL MD [Primary Care Provider] - 3-5 Days Prescriptions: traZODone [Desyrel] 50 mg PO QHS #30 tablet Nitrofurantoin [place]/M-Cryst [Macrobid CAP] 100 mg PO Q12HR #10 capsule
--- NOTE | 2019-06-06 14:15 | Progress Note ---
Subjective - Reason for Consult Consult date: 06/06/19 Reason for consult: Psychiatric Follow-up Evaluation - Chief Complaint Chief complaint: "I feel excellent" Patient is a 38 y.o. who female that presented to the ER by police for bizarre behavior and ETOH abuse. Today the patient is calm and cooperative during the assessment. During the assessment patient was accompanied by her sister. She reports that she was not trying to hurt herself prior to being admitted to the hospital. Per patient she plans to follow-up at the [facility] on tomorrow June 07, 2019. Patient states that her coping skills are meditating, taking deep breaths, and reading the Bible. At the time of discharge patient is in no imminent danger to herself. Patient denies SI/HI's, A/VH's, delusions, and cravings to alcohol. Mental Status Exam - Vital signs Last Vital Signs Temp 98.5 F 06/06/19 06:07 Pulse 74 06/06/19 06:00 Resp 16 06/06/19 06:07 BP 127/78 06/06/19 06:07 Pulse Ox 99 06/06/19 08:09 - Exam Narrative exam: Mental Status Exam Appearance: in hospital attire Behavior: regular eye contact Speech: regular rate and loud tone Mood: " I feel excellent" Affect: constricted Thought Process: circumstantial Thought Content: denies SI/HI's, AVH's, and delusions Motor Activity: ambulatory Cognition: A/Ox 3 Insight: fair Judgment: fair Assessment and Plan Impression: Alcohol Use DO. Alcohol Intoxication. Today the patient is calm and cooperative during the assessment. Patient denies SI/HI's, A/VH's, and delusions. DDx: Mood DO Recommendation/Plan: 1. Patient's 1013 has been rescinded. 2. Patient will follow-up at [facility] on 06/07/2019. Disposition: Patient will follow-up at [facility] or [facility] for outpatient psychiatric services. Will staff with Dr. Martir Hernandez.
== END 2019-06-06 15:00 | disposition home or self-care (01) | DRG 557 ==
LOC: EEVIPCON 19:52 → ED 19:52 → 3A 06-04 03:53
PROVIDERS: ADMIT Internal Medicine; ATTEND Internal Medicine
DX: M62.82 Rhabdomyolysis (principal); G92 Toxic encephalopathy; N30.00 Acute cystitis without hematuria; F10.929 Alcohol use, unspecified with intoxication, unspecified; Y90.1 Blood alcohol level of 20-39 mg/100 ml; E87.6 Hypokalemia
CPT/HCPCS: 36415; 70450; 80048; 80053; 80307; 80320; 81001; 82550; 84702; 85025; 93005; 93010; G0378; G0480; J1630; J1650; J2060; J7030

== ENCOUNTER 2021-01-11 13:31 | Emergency (ER) | payer SELFPAY ==
[2021-01-11] MEDS ORDERED: ZIPRASIDONE MESYLATE 20 MG VIAL IM ONE ×2 (14:20→14:24)
[2021-01-11] MEDS ORDERED: ZIPRASIDONE MESYLATE 20 MG VIAL IM PRN (14:24)
--- NOTE | 2021-01-11 14:51 | Emergency Department Report ---
ED Psych HPI - General Chief Complaint: Anxiety Stated Complaint: SHAKING AND HEART RACING, TINGLING Time Seen by Provider: 01/11/21 14:24 Source: patient Mode of arrival: Ambulatory Limitations: Altered Mental Status - History of Present Illness Initial Comments: Chief complaint: Altered mental status, "Let me just pass away." HPI: This is a 40-year-old female with hx of bipolar disorder and VTE on warfarin, hx of CVA who presents with lip tingling, heart racing. She told her sister that she was having a manic attack. Last year diagnosed with clots in her lungs and her brain. She was shaky. Her speech was slurring. Sister was concerned for having a new stroke. Patient smoked marijuana prior to the episode. Her mother two months ago. Mother one month after being diagnosed with cancer. In 2019 patient was admitted and evaluated for altered mental status, alcohol intoxication and suicidal ideation. According to psychiatric consultation 2019, patient denies psychiatric history. Receives care at [facility]. [place] after 4 years. She lives with sister. Patient currently employed as an retail beauty specialist. Sister Nelda [phone] gave additional history. Patient lives with her sister Nelda. I reviewed ER triage documentation. Patient informed triage nurse that she smoked synthetic marijuana. MD Complaint: altered mental status -: Gradual, This afternoon Associated Psychiatric Symptoms: racing thoughts History of same: Yes Quality: constant Improves With: none Worsens With: none Context: significant life stressor (Mother 2 months ago) Associated Symptoms: other (Lip tingling slurred speech) - Related Data Previous Rx's Medication Instructions Recorded Last Taken Type Nitrofurantoin [place]/M-Cryst 100 mg PO Q12HR #10 capsule 06/05/19 Unknown Rx [Macrobid CAP] traZODone [Desyrel] 50 mg PO QHS #30 tablet 06/06/19 Unknown Rx Allergies Allergy/AdvReac Type Severity Reaction Status Date / Time Unable to Assess Allergy Verified 06/03/19 23:26 ED Review of Systems ROS: Stated complaint: SHAKING AND HEART RACING, TINGLING Other details as noted in HPI Comment: Unobtainable due to pts medical conditions (Altered mental status) ED Past Medical Hx - Past Medical History Previous Medical History?: Yes Hx CVA: Yes Hx Pulmonary Embolism: Yes Hx Psychiatric Treatment: Yes (Bipolar disorder) - Surgical History Additional Surgical History: unable to obtain - Social History Smoking Status: Unknown if ever smoked Substance Use Type: Marijuana - Medications Home Medications: Home Medications Medication Instructions Recorded Confirmed Last Taken Type Nitrofurantoin [place]/M-Cryst 100 mg PO Q12HR #10 capsule 06/05/19 Unknown Rx [Macrobid CAP] traZODone [Desyrel] 50 mg PO QHS #30 tablet 06/06/19 Unknown Rx ED Physical Exam - General Limitations: No Limitations General appearance: alert, in no apparent distress, other (Poor eye contact, circular speech, "I want a pass to go.") - Head Head exam: Present: atraumatic, normocephalic - Eye Eye exam: Present: normal appearance - ENT ENT exam: Present: mucous membranes moist - Neck Neck exam: Present: normal inspection, full ROM - Respiratory Respiratory exam: Present: normal lung sounds bilaterally. Absent: respiratory distress, wheezes, rales, rhonchi - Cardiovascular Cardiovascular Exam: Present: normal rhythm, tachycardia, normal heart sounds. Absent: systolic murmur, diastolic murmur, rubs, gallop - GI/Abdominal GI/Abdominal exam: Present: soft, normal bowel sounds. Absent: distended, tenderness, guarding, rebound - Extremities Exam Extremities exam: Present: normal inspection - Back Exam Back exam: Present: normal inspection - Neurological Exam Neurological exam: Present: altered - Psychiatric Psychiatric exam: Present: agitated, other (circular, pressured speech) - Skin Skin exam: Present: warm, dry, intact, normal color. Absent: rash ED Course Vital Signs 01/11/21 01/11/21 01/11/21 13:38 15:31 20:24 Temperature 98.8 F 98.1 F Pulse Rate 157 H 106 H 90 Respiratory 28 H 18 Rate Blood Pressure 141/61 Blood Pressure 133/81 [Left] O2 Sat by Pulse 100 95 Oximetry 01/11/21 01/12/21 22:03 08:07 Temperature 98.7 F Pulse Rate 91 H Respiratory 20 18 Rate Blood Pressure Blood Pressure 141/83 [Left] O2 Sat by Pulse 97 98 Oximetry - Reevaluation(s) Reevaluation #1: 01/11/21 16:18 Patient sleeping on mattress left lateral decubitus position with left arm under her head. Purposeful movement observed. Protecting airway. ED Medical Decision Making - Lab Data Result diagrams: 01/11/21 15:40 01/11/21 15:40 - Medical Decision Making Altered Mental Status: I evaluated patient while charge nurse wheeled patient to treatment room. Patient used leg to prevent wheelchair from preceding forward. Charge nurse called me to patient's location in ED hallway. Patient is hyperverbal, agitated. She stated, "Just let me pass away." She had flight of ideas. She was ambulatory. She attempted to walk out of the ED. 1. Manic episode with suicidal ideation: Patient required chemical restraint and seclusion. I obained hx from sister who was quite upset that patient was being held on an involuntary basis. I spoke extensively with sister over the phone explained that patient did not have decision making capacity. Secondly, patient can not contract for her safety. ED hold order in place. 1013 form completed 2. Slurred speech due to marijuana intoxication. Considering patient is compliant with warfarin therapy, new acute CVA highly unlikely. Secondly, she did not have any associated symptoms of paralysis, parathesias, or gait imbalance. Thirdly, erratic behavior, tachycardia corrobates marijuana intoxicaton 3. Supratherapeutic INR. Warfarin held until repeat INR tomorrow am. Pharmacy consult ordered. Ms. Baca is medically clear for psychiatric care. I have reviewed labs obtained. She will need evaluation by mental health pallet rectifier when she awakes from sedation I have asked sister to provide list of her home medications. Charge nurse has also made the same request to her sister. Critical care attestation.: If time is entered above; I have spent that time in minutes in the direct care of this critically ill patient, excluding procedure time. ED Disposition Clinical Impression: Manic episode, History of bipolar disorder, Synthetic cannabis-induced anxiety disorder, Drug-induced delirium, Anticoagulation excessive, History of pulmonary embolism, History of CVA (cerebrovascular accident) Disposition: DC-01 TO HOME OR SELFCARE Is pt being admited?: No Does the pt Need Aspirin: No Condition: Stable Additional Instructions: Professional and Agency Contacts To help [facility](14/03) [place] Crisis Line: Suicide Prevention Line: Crisis Text Line: Text START to 700407 Emergency: 911 Outpatient [facility] Resources: ANGIEB: [facility] [address], [place] [address] ADEL[place]: [facility] [address] [place] [address] LINDEN: [facility] - [address] [place] [address] Tuesday thru Tuesday - 8am - 5pm [facility]: [facility] Service Address: [address], [place] [address] REGINA: [facility] Address: [address] [place] [address] Tuesday thru Tuesday- 7am-2pm [facility] Address: [address] [place] [address] Tuesday thru Tuesday: 8:30AM-5PM Phone: [phone] Referrals: PRIMARY CARE, [Primary Care Provider] - 3-5 Days Forms: Work/School Release Form(ED)
[2021-01-11 16:00] LABS: Basophils % (Auto) 0.6 % (0.0-1.8); Eosinophils % (Auto) 0.3 % (0.0-4.3); Hematocrit 36.2 % (30.3-42.9); Hemoglobin 12.6 gm/dl (10.1-14.3); Lymphocytes # (Auto) 0.9 K/mm3 (1.2-5.4); Lymphocytes % (Auto) 14.2 % (13.4-35.0); Mean Corpuscular HGB Conc 35 % (30-34); Mean Corpuscular Volume 107 fl (79-97); Monocytes # (Auto) 0.6 K/mm3 (0.0-0.8); Monocytes % (Auto) 8.5 % (0.0-7.3); Platelet Count 223 K/mm3 (140-440); Red Blood Count 3.38 M/mm3 (3.65-5.03); Red Cell Distribution Width 14.2 % (13.2-15.2)
[2021-01-11 16:09] LABS: Alanine Aminotransferase 40 units/L (7-56); Albumin 4.5 g/dL (3.9-5); Blood Urea Nitrogen 12 mg/dL (7-17); Calcium 8.9 mg/dL (8.4-10.2); Hemolysis Index 7
[2021-01-11 16:10] LABS: BUN/Creatinine Ratio 17
[2021-01-11 16:11] LABS: INR 4.08 (0.87-1.13); Partial Thromboplastin Time 42.7 Sec. (24.2-36.6)
[2021-01-12 08:08] VITALS: BP 141/83
[2021-01-12 09:16] LABS: Bacteria,Urine 2+ /HPF (Negative); Bilirubin,Urine NEG (Negative); Blood,Urine SM (Negative); Color,Urine Yellow (Yellow); Mucus,Urine 3+ /HPF; Urobilinogen,Urine < 2.0 mg/dL (<2.0)
[2021-01-12 09:21] LABS: Protein,Urine <15 mg/dL mg/dL (Negative)
[2021-01-12 09:47] LABS: Amphetamine Screen,Urine Negative; Benzodiazepines Screen,Urine Negative; Cocaine Screen,Urine Negative; Methadone Screen,Urine Negative; Opiate Screen,Urine Negative
[2021-01-12] MEDS ORDERED: WARFARIN 5 MG TAB PO SCH (10:00)
[2021-01-12 10:04] LABS: Cannabinoid Screen,Urine Positive
--- NOTE | 2021-01-12 10:33 | Emergency Department Report ---
Blank Doc - Documentation Documentation: Patient is 40 years old female presented with suicidal ideation. Patient has history of pulmonary embolism on warfarin. Patient denies any complaint at this moment. Vital signs stable. Labs reviewed and showed INR of 4.2. Plan is to repeat INR today and adjust Coumadin accordingly.
--- NOTE | 2021-01-12 10:55 | Progress Note ---
Subjective Date of service: 01/12/21 Subjective Comment: Per ER Note: This is a 40-year-old female with hx of bipolar disorder and VTE on warfarin, hx of CVA who presents with lip tingling, heart racing. She told her sister that she was having a manic attack. Last year diagnosed with clots in her lungs and her brain. She was shaky. Her speech was slurring. Sister was concerned for having a new stroke. Patient smoked marijuana prior to the episode. Her mother two months ago. Mother one month after being diagnosed with cancer. In 2019 patient was admitted and evaluated for altered mental status, alcohol intoxication and suicidal ideation. According to psychiatric consultation 2019, patient denies psychiatric history. During my evaluation of 40y/o Ruba Baca, she is calm and cooperative. She is lucid. The patient says she is confused as to why she would be in the psychiatric area of the emergency department. She says "I came in because I thought I was having a stroke or a seizure." She says "I had two TIAs and a blood clot in my braid so I was afraid." The patient says "I was afraid and anxious." She says she has appointments at the [place] to have [place]. The patient denies SI/HI, or hallucinations. She denies SI/HI. She says "I've never even attempted to hurt myself." The patient says "I never told them that or my sister never told them I was suicidal or homicidal." She says "I work at [employer] and I have to go to work. 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 She says she has a history of "PTSD and bipolar." The patient says she's on lamictal. PAST PSYCHIATRIC HISTORY Diagnoses: PTSD, Bipolar Suicide attempts or Self-harm behavior: Denies Prior psychiatric hospitalizations: Yes Substance Abuse history: states uses THC Previous psychiatric medications tried: Lamictal Outpatient treatment: yes PAST MEDICAL HISTORY: None reported Family Psychiatric History: None reported or documented SOCIAL HISTORY Marital Status: Single Living Arrangements: with sister Employment Status: Employed Access to guns/weapons: denies Education: History of Abuse: Denies Legal History: Denies MENTAL STATUS EXAMINATION General Appearance and Behavior: Age appropriate, good hygiene, not wearing appropriate clothes, good eye contact, cooperative polite with questioning. Cooperation: Participating/engaged Psychomotor Behavior: Psychomotor agitation Mood: Good Affect and affective range: Congruent with stated mood Thought Process: lucid, goal directed Thought Content: None Speech: Normal tone and pace Intellectual Functioning: Average Suicidal Ideation: Denies SI Homicidal Ideation: Denies HI Hallucinations: Denies Delusions: None elicited Impulse Control: Impaired Insight and Judgment: Limited insight and judgment Memory: Normal, Attention: Undivided attention impaired Orientation: Alert, oriented, Assessment and Plan (1) Generalized Anxiety Disorder Current Visit: Yes Status: Acute Treatment Plan d/c 1013 Continue home meds Sitter: Per primary Medical: Per primary Disposition: Do not recommend acute psychiatric inpatient treatment. The patient understands that if any fear or feeling of endangerment or SI/HI arise she is to seek immediate assistance. The patient to follow up in 7 to 14 days upon discharge Will sign off Thank you for this consult Case staffed with Dr. Quinones Medications and Allergies Allergies Allergy/AdvReac Type Severity Reaction Status Date / Time Unable to Assess Allergy Verified 06/03/19 23:26 Home Medications Medication Instructions Recorded Confirmed Last Taken Type Nitrofurantoin [place]/M-Cryst 100 mg PO Q12HR #10 capsule 06/05/19 Unknown Rx [Macrobid CAP] traZODone [Desyrel] 50 mg PO QHS #30 tablet 06/06/19 Unknown Rx Active Meds: Active Medications Ziprasidone (Ziprasidone Mesylate 20 Mg Vial) 10 mg IM Q2H PRN PRN Reason: Agitation Results - Results Labs/Vitals: Laboratory Last Values WBC 6.6 K/mm3 (4.5-11.0) 01/11/21 15:40 RBC 3.38 M/mm3 (3.65-5.03) L 01/11/21 15:40 Hgb 12.6 gm/dl (10.1-14.3) 01/11/21 15:40 Hct 36.2 % (30.3-42.9) 01/11/21 15:40 MCV 107 fl (79-97) H 01/11/21 15:40 MCH 37 pg (28-32) H 01/11/21 15:40 MCHC 35 % (30-34) H 01/11/21 15:40 RDW 14.2 % (13.2-15.2) 01/11/21 15:40 Plt Count 223 K/mm3 (140-440) 01/11/21 15:40 Lymph % (Auto) 14.2 % (13.4-35.0) 01/11/21 15:40 [place] % (Auto) 8.5 % (0.0-7.3) H 01/11/21 15:40 Eos % (Auto) 0.3 % (0.0-4.3) 01/11/21 15:40 Baso % (Auto) 0.6 % (0.0-1.8) 01/11/21 15:40 Lymph # (Auto) 0.9 K/mm3 (1.2-5.4) L 01/11/21 15:40 [place] # (Auto) 0.6 K/mm3 (0.0-0.8) 01/11/21 15:40 Eos # (Auto) 0.0 K/mm3 (0.0-0.4) 01/11/21 15:40 Baso # (Auto) 0.0 K/mm3 (0.0-0.1) 01/11/21 15:40 Seg Neutrophils % 76.4 % (40.0-70.0) H 01/11/21 15:40 Seg Neutrophils # 5.1 K/mm3 (1.8-7.7) 01/11/21 15:40 PT 40.0 Sec. (12.2-14.9) H 01/11/21 15:40 INR 4.08 (0.87-1.13) H 01/11/21 15:40 APTT 42.7 Sec. (24.2-36.6) H 01/11/21 15:40 Sodium 132 mmol/L (137-145) L 01/11/21 15:40 Potassium 3.8 mmol/L (3.6-5.0) 01/11/21 15:40 Chloride 97.1 mmol/L (98-107) L 01/11/21 15:40 Carbon Dioxide 20 mmol/L (22-30) L 01/11/21 15:40 Anion Gap 19 mmol/L 01/11/21 15:40 BUN 12 mg/dL (7-17) 01/11/21 15:40 Creatinine 0.7 mg/dL (0.6-1.2) 01/11/21 15:40 Estimated GFR > 60 ml/min 01/11/21 15:40 BUN/Creatinine Ratio 17 % 01/11/21 15:40 Glucose 115 mg/dL (65-100) H 01/11/21 15:40 Calcium 8.9 mg/dL (8.4-10.2) 01/11/21 15:40 Total Bilirubin 0.30 mg/dL (0.1-1.2) 01/11/21 15:40 AST 47 units/L (5-40) H 01/11/21 15:40 ALT 40 units/L (7-56) 01/11/21 15:40 Alkaline Phosphatase 63 units/L (35-129) 01/11/21 15:40 Total Protein 7.2 g/dL (6.3-8.2) 01/11/21 15:40 Albumin 4.5 g/dL (3.9-5) 01/11/21 15:40 Albumin/Globulin Ratio 1.7 % 01/11/21 15:40 HCG, Qual Negative (Negative) 01/11/21 15:40 Urine Color Yellow (Yellow) 01/12/21 Unknown Urine Turbidity Slightly-cloudy (Clear) 01/12/21 Unknown Urine pH 5.0 (5.0-7.0) 01/12/21 Unknown Ur Specific [place] 1.023 (1.003-1.030) 01/12/21 Unknown Urine Protein <15 mg/dl mg/dL (Negative) 01/12/21 Unknown Urine Glucose (UA) Neg mg/dL (Negative) 01/12/21 Unknown Urine Ketones Tr mg/dL (Negative) 01/12/21 Unknown Urine Blood Sm (Negative) 01/12/21 Unknown Urine Nitrite Neg (Negative) 01/12/21 Unknown Urine Bilirubin Neg (Negative) 01/12/21 Unknown Urine Urobilinogen < 2.0 mg/dL (<2.0) 01/12/21 Unknown Ur Leukocyte Esterase Sm (Negative) 01/12/21 Unknown Urine WBC (Auto) 9.0 /HPF (0.0-6.0) H 01/12/21 Unknown Urine RBC (Auto) 6.0 /HPF (0.0-6.0) 01/12/21 Unknown U Epithel Cells (Auto) 3.0 /HPF (0-13.0) 01/12/21 Unknown Urine Bacteria (Auto) 2+ /HPF (Negative) 01/12/21 Unknown Urine Mucus 3+ /HPF 01/12/21 Unknown Salicylates < 0.3 mg/dL (2.8-20.0) L 01/11/21 15:40 Urine Opiates Screen Negative 01/12/21 Unknown Urine Methadone Screen Negative 01/12/21 Unknown Acetaminophen 5.0 ug/mL (10.0-30.0) L 01/11/21 15:40 Ur Barbiturates Screen Negative 01/12/21 Unknown Ur Phencyclidine Scrn Negative 01/12/21 Unknown Ur Amphetamines Screen Negative 01/12/21 Unknown U Benzodiazepines Scrn Negative 01/12/21 Unknown [place] 0.1 mmol/L (0.0-1.2) 01/11/21 15:40 Urine Cocaine Screen Negative 01/12/21 Unknown U Marijuana (THC) Screen Positive 01/12/21 Unknown Drugs of Abuse Note Disclamer 01/12/21 Unknown Plasma/Serum Alcohol < 0.01 % (0-0.07) 01/11/21 15:40 Last Vital Signs Temp 98.7 F 01/12/21 08:07 Pulse 91 H 01/12/21 08:07 Resp 18 01/12/21 08:07 BP 141/83 01/12/21 08:07 Pulse Ox 98 01/12/21 08:07
[2021-01-12] MEDS ORDERED: WARFARIN NO DOSE TODAY PO ONE (17:00)
== END 2021-01-12 13:42 | disposition home or self-care (01) ==
LOC: ED 13:31
DX: F30.9 Manic episode, unspecified (principal); F12.180 Cannabis abuse with cannabis-induced anxiety disorder; F19.921 Other psychoactive substance use, unspecified with intoxication with delirium; D68.32 Hemorrhagic disorder due to extrinsic circulating anticoagulants; Z86.73 Personal history of transient ischemic attack (TIA), and cerebral infarction without residual deficits; Z86.711 Personal history of pulmonary embolism; Z79.899 Other long term (current) drug therapy
CPT/HCPCS: 36415; 80053; 80178; 80307; 81001; 84703; 85025; 85610; 85730; 87086; 96372; 99284; J3486; 80320; G0480